=== PATIENT | male | born 1970 | race Caucasian/White ===

== ENCOUNTER → 2016-09-13 | Day surgery (SDC) | payer OTHER ==
[2016-09-10 15:09] VITALS: BMI 38.0
--- NOTE | 2016-09-10 15:38 | PAT Medication Instructions ---
Service Date Sep 10, 2016. Current Home Medication List Aspirin (Aspirin Chewable), 81 MG PO QAM Atorvastatin (Lipitor), 80 MG PO QAM Lisinopril (Zestril), 10 MG PO QAM Metoprolol Tartrate (Lopressor) (Lopressor), 25 MG PO QAM Nitroglycerin (Nitrostat), 0.4 MG UT PRN PRN for CHEST PAIN Medication Instructions For Your Scheduled Surgery - Hold the following medications the morning of surgery: Lisinopril (Zestril), 10 MG PO QAM - Take the following medications the morning of surgery with a sip of water: Metoprolol Tartrate (Lopressor) (Lopressor), 25 MG PO QAM Nitroglycerin (Nitrostat), 0.4 MG UT PRN PRN for CHEST PAIN (if needed) Atorvastatin (Lipitor), 80 MG PO QAM Aspirin (Aspirin Chewable), 81 MG PO QAM (okay to continue per surgeon) - Take the following medications as scheduled the night before surgery: Nitroglycerin (Nitrostat), 0.4 MG UT PRN PRN for CHEST PAIN (if needed) If you have any questions please call us at [phone] or [phone] or [phone]
[~2016-09-13] VITALS: Ht 177.8 cm; Wt 121.4 kg
[~2016-09-13] MED LIST: ASPCH81X PO; ATOR-26 PO; ATROPINE SULFATE 0.1 MG/ML 5ML SYR IV PRN; BACITRACIN OINT 15 GM TUBE ONE; BUPIVACAINE 0.5 % 5 MG/1 ML MPF 30ML VIAL ONE; CEFAZOLIN 3000 MG/65 ML D5W IV SCH; CEFAZOLIN IV 2,000 MG/60 ML D5W IV ONE; DEXAMETHASONE SOD INJ 4 MG/ML VIAL ONE; EpHEDrine SULFATE INJ 50 MG/ML AMP IV PRN; FENTANYL CITRATE INJ 50 MCG/1 ML 2 ML VIAL IV PRN; FENTANYL CITRATE INJ 50 MCG/1 ML 2 ML VIAL ONE; GLYCOPYRROLATE INJ 0.2 MG/ML VIAL ONE; IBUPROFEN 600 MG TAB PO PRN; LACTATED RINGER'S 1000ML 1,000 ML IV SCH; LIDOCAINE HCL 1% 20 ML VIAL ONE; LIDOCAINE HCL 2% 2 ML VIAL (20MG/ML) ONE; LISI-461 PO; METO25TA56 PO; MIDAZOLAM HCL 1 MG/ML 2ML VIAL ONE; NEOSTIGMINE METHYLSULFATE 5 MG/5 ML SYR ONE; NTRGSL/4 UT; ONDANSETRON INJ 2 MG/ML 2 ML VIAL IV PRN; ONDANSETRON INJ 2 MG/ML 2 ML VIAL ONE; OXYC-57 PO; OXYCODONE/ACETAMINOPHEN 5-325 TAB ONE; OXYCODONE/ACETAMINOPHEN 5-325 TAB PO PRN; PROPOFOL IV EMULSION 10 MG/ML 20 ML VIAL IV ONE; ROCURONIUM BROMIDE 10 MG/ML 5 ML VIAL ONE; SODIUM CHLORIDE 0.9% 1000ML 1,000 ML IV SCH
[2016-09-13 06:01] VITALS: BP 114/77; PULSE 52; TEMP 36.4; O2SAT 97; Ht 177.8 cm; Wt 121.4 kg
--- NOTE | 2016-09-13 07:15 | History & Physical Bridge Note ---
H&P Re-Evaluation Bridge Note: I have examined the patient, reviewed the History & Physical and in the interval since the performance of the History & Physical I have noted the following changes of clinical significance: No changes noted
--- NOTE | 2016-09-13 08:48 | [facility] Post Operative Brief Note ---
Immediate Operative Summary Operative Date Sep 13, 2016. Pre-Operative Diagnosis Umbilical hernia Post-Operative Diagnosis Umbilical hernia Procedure(s) Performed Open umbilical hernia repair with mesh Surgeon Wil Dobie Worker Surgeon(s) Isamar Le Md Estimated Blood Loss 10CC Findings umbilical hernia, size 2x3cm Fluids (cc crystalloids) 800ml Specimens A: Hernia sac Drains none Anesthesia general Complication(s) None Disposition Recovery Room / PACU
--- NOTE | 2016-09-13 08:57 | Discharge Instructions ---
Discharge Instructions Date of Service Sep 13, 2016. Visit Reason for Visit: Umbilical Hernia Discharge Discharge Diagnosis / Problem: S/P repair umbilical hernia with mesh Discharge Goals Goal(s): Decrease discomfort, Improve function Activity Recommendations Activity Limitations: per Instructions/Follow-up section Lifting Limitations: no more than 25 pounds Exercise/Sports Limitations: gradually increase as tolerated May Resume Sexual Activity: when tolerated Shower/Bathe: may shower/bathe in 3 days Driving or Machine Use: resume 3 days after discharge Anesthesia . Post Anesthesia Instructions: If you have had General Anesthesia or IV Sedation: * Do not drive today. * Resume driving when surgeon permits. * Do not make important decisions or sign legal documents today. * Call surgeon for: 1. Temperature elevations greater than 101 degrees F. 2. Uncontrollable pain. 3. Excessive bleeding. 4. Persistent nausea and vomiting. 5. Medication intolerance (nausea, vomiting or rash). * For nausea and vomiting use only clear liquids such as: tea, soda, bouillon until nausea subsides, then gradually increase diet as tolerated. * If you have any concerns or questions, call your surgeon's office. If physician is unavailable and it is an emergency, call 911 or go to the nearest emergency room. . Instructions / Follow-Up Instructions / Follow-Up keep the dressing on for 4 days, he can take a shower on 09/18/2016, no driving while taking pain medicine, follow up 1 week, Diet Recommendations Recommended Home Diet: resume previous diet Procedures Procedures Performed: Open umbilical hernia repair with mesh Pending Studies Studies pending at discharge: no Medical Emergencies . Who to Call and When: Medical Emergencies: If at any time you feel your situation is an emergency, please call 911 immediately. . Non-Emergent Contact Non-Emergency issues call your: Surgeon Call Non-Emergent contact if: you have a fever, temperature is above 100.5, your pain is not controlled, your pain is worsening, wound has increased drainage, wound has increased redness . . "Provider Documentation" section prepared by Hortensia De La Torre. . [place] Drug Monitoring Program Search Results: no issues identified
--- NOTE | 2016-09-13 09:36 | OPERATIVE REPORT ---
DATE OF OPERATION: 09/13/2016 PREOPERATIVE DIAGNOSIS: Umbilical hernia. POSTOPERATIVE DIAGNOSIS: Same. OPERATION: Open repair of umbilical hernia with mesh. SURGEON: Dr. Hortensia De La Torre. YARD STOCKER: Vangie Le M.D. ANESTHESIA: General. ESTIMATED BLOOD LOSS: About 10 mL. IV FLUIDS: 800 mL. FINDINGS: Umbilical hernia size about 2 x 3 cm. COMPLICATIONS: None. INDICATIONS FOR THE PROCEDURE: This is a 46-year-old gentleman who presented symptomatic umbilical hernia. The patient will be required to do open repair of umbilical hernia with mesh. I did talk to the patient about the benefit and risk, alternate procedure. I indicated the risks may include but not limited such as bleeding, infection, hernia recurrence, seroma, may need more procedure. The patient understands. He signed informed consent and I answered all questions. DETAILS OF PROCEDURE: We brought the patient to the OR, put the patient in the supine position. The patient received SCD on bilateral legs to prevent DVT. Also, the patient received 2 grams Ancef IV for prophylactic antibiotic. The patient received general anesthesia without difficulty. The abdomen was prepped and draped in routine sterile fashion. After a timeout, we injected the local anesthesia by using 1% lidocaine mixed with 0.5% Marcaine around the umbilical area. Then I made a small incision just below the umbilical, mobilized umbilical and reduced the hernia sac. Then once we mobilized the hernia sac we completed the resection, the hernia sac sent to pathology. Then we found patient had the umbilical hernia size about 2 x 3 cm, we chose 6.4 x 6.4 cm mesh used #1 Ethibond to close the mesh with the fascia around 360 degree interrupted and then we tied all the suture and the mesh, sit nicely without tension. Then we reattached umbilical back to the operation, no location using 2-0 Vicryl to close subcutaneous layer by using 2-0 Vicryl interrupted and closed skin by using 4-0 Vicryl. I put the dressing on. The patient tolerated the procedure well. After the procedure, I did talk to the patient and patient's family member about the OR finding and procedure we did, they understand. The hernia sac specimen sent to pathology. All the instrument, needle and sponge count correct x2 at the end of case. The patient transferred to recovery room in stable condition. I attest to the content of the Intraoperative Record and any orders documented therein. Any exceptions are noted below. MTDD
--- NOTE | 2016-09-13 09:44 | Anesthesiology Progress Note ---
Anesthesia Post Op Note Date & Time Sep 13, 2016 at 09:43 Vital Signs Pain Intensity: 2 Vital Signs Past 12 Hours Date Time Temp Pulse Resp B/P (MAP) Pulse Ox O2 Delivery O2 Flow Rate FiO2 09/13/16 09:41 93/69 09/13/16 09:41 93/69 09/13/16 09:41 36.2 49 20 120/72 98 Room Air 09/13/16 09:40 59 15 95 09/13/16 09:40 59 15 95 09/13/16 09:40 56 15 09/13/16 09:40 56 15 09/13/16 09:36 96/61 09/13/16 09:36 96/61 09/13/16 09:35 50 21 97 09/13/16 09:35 51 21 09/13/16 09:35 50 21 97 09/13/16 09:35 51 21 09/13/16 09:31 108/69 09/13/16 09:31 108/69 09/13/16 09:30 49 12 09/13/16 09:30 48 12 88 09/13/16 09:30 48 12 88 09/13/16 09:30 49 12 09/13/16 09:26 106/60 09/13/16 09:26 106/60 09/13/16 09:25 54 9 94 09/13/16 09:25 54 9 94 09/13/16 09:25 53 9 09/13/16 09:25 53 9 09/13/16 09:21 97/59 09/13/16 09:21 97/59 09/13/16 09:20 52 9 09/13/16 09:20 51 9 95 09/13/16 09:20 51 9 95 09/13/16 09:20 52 9 09/13/16 09:16 107/64 09/13/16 09:16 107/64 09/13/16 09:15 55 19 91 09/13/16 09:15 55 19 09/13/16 09:15 55 19 91 09/13/16 09:15 55 19 09/13/16 09:11 115/63 09/13/16 09:11 115/63 09/13/16 09:10 52 19 09/13/16 09:10 51 19 97 09/13/16 09:10 52 19 09/13/16 09:10 51 19 97 09/13/16 09:06 106/68 09/13/16 09:06 106/68 09/13/16 09:05 47 20 09/13/16 09:05 46 20 97 09/13/16 09:05 47 20 09/13/16 09:05 46 20 97 09/13/16 09:01 114/67 09/13/16 09:01 114/67 09/13/16 09:00 49 22 09/13/16 09:00 50 22 97 09/13/16 09:00 50 22 97 09/13/16 09:00 49 22 09/13/16 08:56 107/74 09/13/16 08:56 107/74 09/13/16 08:55 50 27 97 09/13/16 08:55 50 27 09/13/16 08:55 50 27 97 09/13/16 08:55 50 27 09/13/16 08:51 123/83 09/13/16 08:51 123/83 09/13/16 08:50 53 09/13/16 08:50 53 94 09/13/16 08:50 36.0 51 16 123/83 98 Mask 10 09/13/16 08:50 53 09/13/16 08:50 53 94 09/13/16 06:01 36.4 52 18 114/77 (89) 97 Room Air Notes Mental Status: alert / awake / arousable, participated in evaluation Pt Amnestic to Procedure: Yes Nausea / Vomiting: adequately controlled Pain: adequately controlled Airway Patency, RR, SpO2: stable & adequate BP & HR: stable & adequate Hydration State: stable & adequate Anesthetic Complications: no major complications apparent
[2016-09-13 10:00] VITALS: BP 102/60; PULSE 49; TEMP 36.8; O2SAT 95
[2016-09-13 10:30] VITALS: BP 105/60; PULSE 51; TEMP 36.7; O2SAT 97
[2016-09-13 10:50] VITALS: BP 124/72; PULSE 68; TEMP 36.8; O2SAT 97
== END | disposition home or self-care (01) ==
LOC: C.ACU 05:27
PROVIDERS: ATTEND Surgery
DX: K42.9 Umbilical hernia without obstruction or gangrene (principal); K21.0 Gastro-esophageal reflux disease with esophagitis; I25.10 Atherosclerotic heart disease of native coronary artery without angina pectoris; E78.5 Hyperlipidemia, unspecified; Z68.38 Body mass index [BMI] 38.0-38.9, adult; I10 Essential (primary) hypertension; I45.10 Unspecified right bundle-branch block; K44.9 Diaphragmatic hernia without obstruction or gangrene; Z82.49 Family history of ischemic heart disease and other diseases of the circulatory system; Z83.3 Family history of diabetes mellitus; F17.220 Nicotine dependence, chewing tobacco, uncomplicated; Z79.82 Long term (current) use of aspirin; I25.2 Old myocardial infarction; Z95.818 Presence of other cardiac implants and grafts; E66.9 Obesity, unspecified